=== PATIENT | female | born 1955 | race Caucasian/White ===

== ENCOUNTER 2021-01-31 21:59 | Inpatient (IN) | payer OTHER, MEDICARE ==
[2021-01-31] MEDS ORDERED: Ondansetron PF 4 MG/2 ML Vial ONE (22:24)
[2021-01-31] MEDS ORDERED: Morphine 4 MG/ML VIAL ONE (22:24)
[2021-01-31] MEDS ORDERED: Fentanyl 100 MCG/2 ML VIAL ONE (22:36)
[2021-01-31 22:37] LABS: #Eosinphils 0.1 10x3/uL (0.0-0.5); #Monocytes 0.6 10x3/uL (0.0-1.1); %Basophils 0.2 % (0.0-2.0); %Eosinophils 0.7 % (0.0-6.0); %Lymphocytes 25.6 % (18.0-47.0); %Monocytes 5.4 % (0.0-10.0); %Neutrophils 67.7 % (40.0-75.0); Hemoglobin 13.7 g/dL (12.0-15.5); Mean Corpuscular HGB CONC 32.5 g/dL (32.0-36.0); Mean Corpuscular Hemoglobin 28.7 pg (27.0-33.0); Mean Corpuscular Volume 88.5 fl (81.6-98.3); Mean Platelet Volume 10.4 fl (7.4-10.4); Platelet Count 234 10x3/uL (150-450); RBC Distribution Width 12.1 % (11.5-14.5); Red Blood Cell (RBC) Count 4.77 10x6/uL (3.90-5.03); White Blood Cell (WBC) Count 10.4 10x3/uL (3.5-10.5)
[2021-01-31 22:47] LABS: ALT (SGPT) 22 U/L (8-55); AST (SGOT) 16 U/L (5-34); Albumin 4.4 g/dL (3.4-4.8); Alkaline Phosphatase 101 U/L (40-110); Anion Gap 13 mmol/L (10-20); BUN (Urea Nitrogen) 15 mg/dL (9.8-20.1); Bilirubin, Total 0.6 mg/dL (0.2-1.2); Calc. Creatinine Clearance 0 mL/min (70-130); Calcium 9.1 mg/dL (7.8-10.44); Carbon Dioxide 28 mmol/L (23-31); Chloride 104 mmol/L (98-107); Globulin 2.3 g/dL (2.4-3.5); Glucose 135 mg/dL (80-115); Potassium 3.9 mmol/L (3.5-5.1); Protein, Total 6.7 g/dL (5.8-8.1); Sodium 141 mmol/L (136-145)
[2021-01-31 23:05] LABS: Lipase 6454 U/L (8-78)
[2021-02-01] MEDS ORDERED: Promethazine HCl 25 MG/ML VIAL ONE (00:13)
[2021-02-01 01:36] VITALS: BMI 31.6
[2021-02-01] MEDS ORDERED: Ondansetron PF 4 MG/2 ML Vial IVP PRN (03:17)
[2021-02-01] MEDS ORDERED: Fentanyl 100 MCG/2 ML VIAL SLOW IVP PRN (03:17)
[2021-02-01] MEDS ORDERED: NS 0.9% w/ 20 MEQ KCL 1,000 ML/1,000 ML BAG IV SCH (03:30)
[2021-02-01] MEDS ORDERED: Lactated Ringer's 1,000 ML IV SCH ×2 (03:30→04:30)
[2021-02-01] MEDS ORDERED: Sodium Chloride 0.9% (PF) 10 ML VIAL FS PRN (03:45)
[2021-02-01] MEDS: Fentanyl 100 MCG/2 ML VIAL SLOW IVP PRN ×2 (03:55→09:18)
[2021-02-01 05:29] LABS: #Eosinphils 0.1 10x3/uL (0.0-0.5); #Monocytes 0.5 10x3/uL (0.0-1.1); #Neutrophils 5.4 10x3/uL (1.5-8.4); %Basophils 0.1 % (0.0-2.0); %Eosinophils 0.6 % (0.0-6.0); %Lymphocytes 26.7 % (18.0-47.0); %Monocytes 5.7 % (0.0-10.0); %Neutrophils 66.8 % (40.0-75.0); Hemoglobin 11.9 g/dL (12.0-15.5); Mean Corpuscular HGB CONC 32.4 g/dL (32.0-36.0); Mean Corpuscular Volume 89.5 fl (81.6-98.3); Mean Platelet Volume 9.9 fl (7.4-10.4); Platelet Count 183 10x3/uL (150-450); RBC Distribution Width 12.2 % (11.5-14.5); White Blood Cell (WBC) Count 8.1 10x3/uL (3.5-10.5)
[2021-02-01 05:46] LABS: Anion Gap 11 mmol/L (10-20); BUN (Urea Nitrogen) 13 mg/dL (9.8-20.1); Calc. Creatinine Clearance 106 mL/min (70-130); Carbon Dioxide 27 mmol/L (23-31); Chloride 107 mmol/L (98-107); Glucose 105 mg/dL (80-115); Magnesium 1.8 mg/dL (1.6-2.6); Potassium 4.4 mmol/L (3.5-5.1); Sodium 141 mmol/L (136-145)
[2021-02-01 05:58] LABS: Lipase 1993 U/L (8-78)
[2021-02-01] MEDS: NS 0.9% w/ 20 MEQ KCL 1,000 ML/1,000 ML BAG IV SCH ×3 (06:13→18:46)
[2021-02-01] MEDS: Metoprolol Tartrate 5 MG/5 ML VIAL IVP SCH ×3 (06:15→22:21)
[2021-02-01] MEDS: Pantoprazole 40 MG VIAL IVP SCH (09:18)
[2021-02-01] MEDS: Enoxaparin Sodium 40 MG/0.4 ML SYRINGE SC SCH (09:18)
[2021-02-02] MEDS: Metoprolol Tartrate 5 MG/5 ML VIAL IVP SCH ×3 (06:02→23:03)
[2021-02-02] MEDS: NS 0.9% w/ 20 MEQ KCL 1,000 ML/1,000 ML BAG IV SCH ×3 (06:06→17:29)
[2021-02-02] MEDS: Pantoprazole 40 MG VIAL IVP SCH (09:23)
[2021-02-02] MEDS: Enoxaparin Sodium 40 MG/0.4 ML SYRINGE SC SCH (09:32)
[2021-02-02] MEDS ORDERED: Acetaminophen 325 MG TAB PO PRN (22:19)
[2021-02-02] MEDS ORDERED: Metoprolol Tartrate 25 MG TAB PO SCH (22:45)
[2021-02-03] MEDS: NS 0.9% w/ 20 MEQ KCL 1,000 ML/1,000 ML BAG IV SCH ×3 (01:08→11:24)
[2021-02-03] MEDS ORDERED: Metoprolol Tartrate 25 MG TAB PO SCH (09:00)
[2021-02-03] MEDS: Enoxaparin Sodium 40 MG/0.4 ML SYRINGE SC SCH (09:49)
[2021-02-03] MEDS: Pantoprazole 40 MG VIAL IVP SCH (09:49)
[2021-02-03 11:44] VITALS: BP 136/78; TEMP 97.8
== END 2021-02-03 13:45 | disposition home or self-care (01) | DRG 439 ==
LOC: CSHERS 21:59 → CSHTELE 02-01 01:07 → OBSVTOIN 02-01 03:17
PROVIDERS: ADMIT Family Medicine; ATTEND Emergency Medicine
DX: K85.00 Idiopathic acute pancreatitis without necrosis or infection (principal); K86.2 Cyst of pancreas; F17.210 Nicotine dependence, cigarettes, uncomplicated; E78.5 Hyperlipidemia, unspecified; E03.9 Hypothyroidism, unspecified; Z95.1 Presence of aortocoronary bypass graft; R73.9 Hyperglycemia, unspecified; Z88.5 Allergy status to narcotic agent
CPT/HCPCS: 71045; 80048; 80053; 83690; 83735; 84439; 84443; 84484; 85025; 96374; 96375; C9113; J1650; J2270; J2405; J2550; J3010; J3480; J7120

== ENCOUNTER 2021-08-05 05:11 | Emergency (ER) | payer OTHER, MEDICARE ==
[2021-08-05] MEDS ORDERED: Ondansetron PF 4 MG/2 ML Vial ONE (05:41)
[2021-08-05] MEDS ORDERED: Ketorolac Tromethamine 30 MG/ML VIAL ONE (05:41)
[2021-08-05 06:20] LABS: #Monocytes 0.2 10x3/uL (0.0-1.1); #Neutrophils 1.7 10x3/uL (1.5-8.4); %Lymphocytes 38.7 % (18.0-47.0); %Monocytes 6.6 % (0.0-10.0); %Neutrophils 54.1 % (40.0-75.0); Hemoglobin 12.8 g/dL (12.0-15.5); Mean Corpuscular HGB CONC 32.7 g/dL (32.0-36.0); Mean Corpuscular Hemoglobin 28.2 pg (27.0-33.0); Mean Corpuscular Volume 86.3 fl (81.6-98.3); Mean Platelet Volume 10.7 fl (7.4-10.4); Platelet Count 174 10x3/uL (150-450); Red Blood Cell (RBC) Count 4.54 10x6/uL (3.90-5.03); White Blood Cell (WBC) Count 3.2 10x3/uL (3.5-10.5)
[2021-08-05 06:39] LABS: ALT (SGPT) 37 U/L (8-55); AST (SGOT) 42 U/L (5-34); Albumin 3.8 g/dL (3.4-4.8); Alkaline Phosphatase 90 U/L (40-110); Anion Gap 13 mmol/L (10-20); BUN (Urea Nitrogen) 8 mg/dL (9.8-20.1); Bilirubin, Total 0.4 mg/dL (0.2-1.2); CRP (Inflammatory) 5.42 mg/dL (= or < 0.5); Calc. Creatinine Clearance 0 mL/min (70-130); Calcium 8.6 mg/dL (7.8-10.44); Carbon Dioxide 26 mmol/L (23-31); Chloride 104 mmol/L (98-107); Globulin 2.8 g/dL (2.4-3.5); Glucose 177 mg/dL (80-115); Potassium 3.5 mmol/L (3.5-5.1); Protein, Total 6.6 g/dL (5.8-8.1); Sodium 139 mmol/L (136-145)
== END 2021-08-05 07:50 | disposition home or self-care (01) ==
LOC: CSHERS 05:11
DX: U07.1 COVID-19 (principal); R11.2 Nausea with vomiting, unspecified; I10 Essential (primary) hypertension; E78.5 Hyperlipidemia, unspecified; E03.9 Hypothyroidism, unspecified; F17.210 Nicotine dependence, cigarettes, uncomplicated; Z79.899 Other long term (current) drug therapy
CPT/HCPCS: 80053; 83690; 84484; 85025; 86140; 93005; 96374; 96375; J1885; J2405

== ENCOUNTER 2021-10-03 13:15 | Inpatient (IN) | payer OTHER, MEDICARE ==
[2021-10-03] MEDS ORDERED: Ondansetron PF 4 MG/2 ML Vial ONE (14:01)
[2021-10-03] MEDS ORDERED: Fentanyl 100 MCG/2 ML VIAL ONE ×2 (14:01→16:13)
[2021-10-03 14:23] LABS: #Eosinphils 0.1 10x3/uL (0.0-0.5); #Monocytes 0.3 10x3/uL (0.0-1.1); #Neutrophils 3.7 10x3/uL (1.5-8.4); %Basophils 0.2 % (0.0-2.0); %Lymphocytes 31.2 % (18.0-47.0); %Monocytes 5.4 % (0.0-10.0); Hemoglobin 12.1 g/dL (12.0-15.5); Mean Corpuscular HGB CONC 32.2 g/dL (32.0-36.0); Mean Corpuscular Hemoglobin 28.3 pg (27.0-33.0); Mean Corpuscular Volume 87.9 fl (81.6-98.3); Mean Platelet Volume 10.1 fl (7.4-10.4); Platelet Count 337 10x3/uL (150-450); RBC Distribution Width 13.5 % (11.5-14.5); Red Blood Cell (RBC) Count 4.28 10x6/uL (3.90-5.03); White Blood Cell (WBC) Count 6.1 10x3/uL (3.5-10.5)
[2021-10-03 14:48] LABS: ALT (SGPT) 15 U/L (8-55); AST (SGOT) 13 U/L (5-34); Alkaline Phosphatase 99 U/L (40-110); Anion Gap 14 mmol/L (10-20); BUN (Urea Nitrogen) 10 mg/dL (9.8-20.1); Bilirubin, Total 0.2 mg/dL (0.2-1.2); Calc. Creatinine Clearance 0 mL/min (70-130); Carbon Dioxide 27 mmol/L (23-31); Chloride 103 mmol/L (98-107); Globulin 2.8 g/dL (2.4-3.5); Glucose 249 mg/dL (80-115); Lipase 184 U/L (8-78); Protein, Total 6.8 g/dL (5.8-8.1); Sodium 140 mmol/L (136-145)
[2021-10-03 16:30] LABS: Bilirubin Neg (Negative); Blood, Urine Negative (Negative); Clarity Clear (Clear); Glucose, Urine (Dipstick) Normal (Negative); Ketone, Urine Negative (Negative); Leukocyte Negative (Negative); Nitrite Negative (Negative); Protein, Urine (Dipstick) Negative (Neg-Trace); Specific Gravity, Urine 1.005 (1.002-1.036); Urobilinogen Normal mg/dL (Less than 2); pH, Urine 6.5 (5.0-9.0)
[2021-10-03] MEDS ORDERED: Ondansetron PF 4 MG/2 ML Vial IVP PRN ×2 (19:05→19:15)
[2021-10-03 19:15] LABS: SARS-CoV-2 NAA Rapid Test Not Detected (NotDetected)
[2021-10-03] MEDS ORDERED: Acetaminophen 325 MG TAB PO PRN (19:15)
[2021-10-03] MEDS ORDERED: Sodium Chloride 0.9% 1,000 ML IV SCH ×2 (19:15→21:15)
[2021-10-03] MEDS ORDERED: Ondansetron ODT 4 MG TAB SL PRN (19:15)
[2021-10-03] MEDS: Fentanyl 100 MCG/2 ML VIAL SLOW IVP PRN ×3 (19:30→22:37)
[2021-10-03 19:45] VITALS: BMI 31.6
[2021-10-03] MEDS ORDERED: Dextrose 50% Abboject 50 ML SYRINGE SLOW IVP PRN (21:23)
[2021-10-03] MEDS ORDERED: Dextrose 5% in Water 1,000 ML IV PRN (21:23)
[2021-10-03] MEDS ORDERED: HumaLOG 300 UNITS/3 ML VIAL SC PRN (21:23)
[2021-10-03] MEDS: Sodium Chloride 0.9% 1,000 ML IV SCH (22:42)
[2021-10-03] MEDS ORDERED: Fentanyl 100 MCG/2 ML VIAL SLOW IVP PRN (22:52)
[2021-10-03] MEDS ORDERED: HYDROmorphone 0.5 MG/0.5 ML SYRINGE SLOW IVP SCH ×2 (23:00→23:45)
[2021-10-03] MEDS: Ondansetron PF 4 MG/2 ML Vial IVP PRN (23:50)
[2021-10-04] MEDS: Sodium Chloride 0.9% 1,000 ML IV SCH ×6 (01:20→20:19)
[2021-10-04] MEDS: Ondansetron PF 4 MG/2 ML Vial IVP PRN ×2 (05:44→16:23)
[2021-10-04 06:28] LABS: #Eosinphils 0.1 10x3/uL (0.0-0.5); #Monocytes 0.4 10x3/uL (0.0-1.1); #Neutrophils 2.9 10x3/uL (1.5-8.4); %Basophils 0.2 % (0.0-2.0); %Eosinophils 2.3 % (0.0-6.0); %Lymphocytes 35.6 % (18.0-47.0); %Monocytes 6.7 % (0.0-10.0); Hemoglobin 10.9 g/dL (12.0-15.5); Mean Corpuscular HGB CONC 32.1 g/dL (32.0-36.0); Mean Corpuscular Hemoglobin 28.1 pg (27.0-33.0); Mean Corpuscular Volume 87.6 fl (81.6-98.3); Mean Platelet Volume 10.4 fl (7.4-10.4); Platelet Count 276 10x3/uL (150-450); Red Blood Cell (RBC) Count 3.88 10x6/uL (3.90-5.03); White Blood Cell (WBC) Count 5.2 10x3/uL (3.5-10.5)
[2021-10-04 06:38] LABS: PTT 26.2 sec (22.0-33.0); Prothrombin Time 10.9 sec (9.5-12.1)
[2021-10-04 06:50] LABS: Anion Gap 13 mmol/L (10-20); BUN (Urea Nitrogen) 5 mg/dL (9.8-20.1); Calc. Creatinine Clearance 108 mL/min (70-130); Carbon Dioxide 22 mmol/L (23-31); Cardiac Risk 7.4 (Less than 4.5); Chloride 111 mmol/L (98-107); Cholesterol 155 mg/dl (< 200 Desired); Glucose 130 mg/dL (80-115); HDL Cholesterol 21 mg/dL (>60 Neg Risk); LDL Cholesterol, Calculated 104 mg/dL; Lipase 94 U/L (8-78); Magnesium 1.5 mg/dL (1.6-2.6); Potassium 3.5 mmol/L (3.5-5.1); Sodium 142 mmol/L (136-145); Triglycerides 152 mg/dL (Less than 150)
[2021-10-04] MEDS ORDERED: hydrALAZINE 20 MG/ML VIAL SLOW IVP PRN (07:34)
[2021-10-04] MEDS ORDERED: Magnesium 2 GM/50 ML 2 GM in Premix Bag 1 BAG IVPB SCH (08:00)
[2021-10-04] MEDS ORDERED: HYDROmorphone 0.5 MG/0.5 ML SYRINGE SLOW IVP SCH (08:30)
[2021-10-04 09:22] LABS: Hemoglobin A1c 7.1 % (4.0-6.0)
[2021-10-04] MEDS: Enoxaparin Sodium 40 MG/0.4 ML SYRINGE SC SCH (09:38)
[2021-10-04] MEDS ORDERED: HYDROmorphone 0.5 MG/0.5 ML SYRINGE SLOW IVP PRN (12:00)
[2021-10-04] MEDS ORDERED: fentaNYL 50 mcg/hour Patch TD SCH (14:00)
[2021-10-04] MEDS ORDERED: diphenhydrAMINE 50 MG/ML VIAL IVP PRN (17:59)
[2021-10-04] MEDS ORDERED: diphenhydrAMINE 50 MG/ML VIAL IM PRN (17:59)
[2021-10-04] MEDS ORDERED: Zolpidem Tartrate 5 MG TAB PO PRN (17:59)
[2021-10-04] MEDS ORDERED: Naloxone HCl 0.4 mg/ml Vial IV PRN (17:59)
[2021-10-04] MEDS ORDERED: Promethazine HCl 25 MG/ML VIAL IM PRN (17:59)
[2021-10-04] MEDS ORDERED: diphenhydrAMINE 25 MG CAP PO PRN (17:59)
[2021-10-04] MEDS ORDERED: HYDROmorphone 10 mg/100 ml CADD IVPB PRN (17:59)
[2021-10-04] MEDS ORDERED: Ondansetron PF 4 MG/2 ML Vial IVP PRN (17:59)
[2021-10-04] MEDS ORDERED: Communication Order-Pharmacy FS SCH (18:00)
[2021-10-04] MEDS ORDERED: HYDROmorphone HCL/PF 10 MG in Sodium Chloride 0.9% 49 ML FS PRN (18:52)
[2021-10-04] MEDS: Dextrose 5 %-0.45 % NaCl 1,000 ML IV SCH (20:00)
[2021-10-05] MEDS: Sodium Chloride 0.9% 1,000 ML IV SCH ×2 (04:37→06:09)
[2021-10-05 04:38] LABS: Anion Gap 14 mmol/L (10-20); BUN (Urea Nitrogen) 4 mg/dL (9.8-20.1); Calc. Creatinine Clearance 108 mL/min (70-130); Calcium 8.1 mg/dL (7.8-10.44); Carbon Dioxide 22 mmol/L (23-31); Chloride 109 mmol/L (98-107); Glucose 121 mg/dL (80-115); Magnesium 2.1 mg/dL (1.6-2.6); Potassium 3.5 mmol/L (3.5-5.1); Sodium 141 mmol/L (136-145)
[2021-10-05] MEDS: Dextrose 5 %-0.45 % NaCl 1,000 ML IV SCH ×2 (06:09→18:29)
[2021-10-05] MEDS ORDERED: Potassium Chloride 20 MEQ TAB PO SCH (08:00)
[2021-10-05] MEDS ORDERED: Potassium Chloride 40 MEQ in Premix Bag 1 BAG IVPB SCH (08:00)
[2021-10-05] MEDS: Enoxaparin Sodium 40 MG/0.4 ML SYRINGE SC SCH (08:57)
[2021-10-05] MEDS ORDERED: Labetalol HCl 100 MG/20 ML VIAL SLOW IVP PRN (12:22)
[2021-10-05] MEDS ORDERED: HYDROcodone/Acetaminophen 5/325 mg Tablet PO PRN (15:24)
[2021-10-06 04:44] LABS: Anion Gap 11 mmol/L (10-20); BUN (Urea Nitrogen) 4 mg/dL (9.8-20.1); Calc. Creatinine Clearance 98 mL/min (70-130); Calcium 8.6 mg/dL (7.8-10.44); Carbon Dioxide 26 mmol/L (23-31); Chloride 110 mmol/L (98-107); Glucose 117 mg/dL (80-115); Magnesium 1.9 mg/dL (1.6-2.6); Sodium 143 mmol/L (136-145)
[2021-10-06] MEDS ORDERED: Levothyroxine Sodium 112 MCG TAB PO SCH (06:00)
[2021-10-06] MEDS: Enoxaparin Sodium 40 MG/0.4 ML SYRINGE SC SCH (09:46)
[2021-10-06 11:15] VITALS: BP 158/84; TEMP 97.9
== END 2021-10-06 09:30 | disposition home or self-care (01) | DRG 439 ==
LOC: CSHERS 13:15 → CSHTELE 18:15
PROVIDERS: ADMIT Family Medicine; ATTEND Internal Medicine
DX: K85.00 Idiopathic acute pancreatitis without necrosis or infection (principal); K86.3 Pseudocyst of pancreas; Z20.822 Contact with and (suspected) exposure to COVID-19; I10 Essential (primary) hypertension; E03.9 Hypothyroidism, unspecified; F17.210 Nicotine dependence, cigarettes, uncomplicated; E11.9 Type 2 diabetes mellitus without complications; Z96.653 Presence of artificial knee joint, bilateral; E78.5 Hyperlipidemia, unspecified; Z98.51 Tubal ligation status; Z79.899 Other long term (current) drug therapy; Z79.890 Hormone replacement therapy; Z88.5 Allergy status to narcotic agent; Z90.710 Acquired absence of both cervix and uterus
CPT/HCPCS: 36415; 36416; 74183; 80048; 80053; 80061; 81003; 83036; 83690; 83735; 85025; 85610; 85730; 93005; 96374; 96375; 96376; J0360; J1170; J1650; J2405; J3010; J3475; J3490; J7042; J7050; U0002

== ENCOUNTER 2021-12-08 01:02 | Emergency (ER) | payer OTHER, MEDICARE ==
[2021-12-08] MEDS ORDERED: Ondansetron PF 4 MG/2 ML Vial ONE (01:21)
[2021-12-08] MEDS ORDERED: Promethazine HCl 25 MG/ML VIAL ONE (01:24)
[2021-12-08] MEDS ORDERED: Ketorolac Tromethamine 30 MG/ML VIAL ONE (01:31)
[2021-12-08 01:56] LABS: Platelet Count 243 10x3/uL (150-450)
[2021-12-08 01:57] LABS: #Eosinphils 0.1 10x3/uL (0.0-0.5); #Monocytes 0.2 10x3/uL (0.0-1.1); #Neutrophils 10.3 10x3/uL (1.5-8.4); %Basophils 0.2 % (0.0-2.0); %Eosinophils 0.3 % (0.0-6.0); %Monocytes 1.3 % (0.0-10.0); Hemoglobin 13.8 g/dL (12.0-15.5); Mean Corpuscular Hemoglobin 28.5 pg (27.0-33.0); Mean Corpuscular Volume 94.8 fl (81.6-98.3); Mean Platelet Volume 10.4 fl (7.4-10.4); RBC Distribution Width 13.8 % (11.5-14.5); Red Blood Cell (RBC) Count 4.85 10x6/uL (3.90-5.03); White Blood Cell (WBC) Count 15.4 10x3/uL (3.5-10.5)
[2021-12-08 02:07] LABS: ALT (SGPT) 20 U/L (8-55); AST (SGOT) 17 U/L (5-34); Albumin 4.4 g/dL (3.4-4.8); Alkaline Phosphatase 85 U/L (40-110); Anion Gap 20 mmol/L (10-20); BUN (Urea Nitrogen) 17 mg/dL (9.8-20.1); Bilirubin, Total 0.7 mg/dL (0.2-1.2); Calc. Creatinine Clearance 0 mL/min (70-130); Carbon Dioxide 18 mmol/L (23-31); Chloride 106 mmol/L (98-107); Globulin 2.7 g/dL (2.4-3.5); Glucose 160 mg/dL (80-115); Lipase 88 U/L (8-78); Potassium 4.3 mmol/L (3.5-5.1); Protein, Total 7.1 g/dL (5.8-8.1); Sodium 140 mmol/L (136-145)
== END 2021-12-08 05:26 | disposition home or self-care (01) ==
LOC: CSHERS 01:02
DX: R10.11 Right upper quadrant pain (principal); I10 Essential (primary) hypertension; E78.5 Hyperlipidemia, unspecified; Z79.899 Other long term (current) drug therapy
CPT/HCPCS: 71045; 76705; 80053; 83690; 84484; 85025; 93005; 96374; 96375; J1885; J2405; J2550

== ENCOUNTER 2021-12-13 17:54 | Inpatient (IN) | payer MEDICARE, OTHER ==
[2021-12-13] MEDS ORDERED: Ondansetron PF 4 MG/2 ML Vial ONE (18:50)
[2021-12-13] MEDS ORDERED: Ketorolac Tromethamine 30 MG/ML VIAL ONE (18:50)
[2021-12-13] MEDS ORDERED: Promethazine HCl 25 MG/ML VIAL ONE (18:50)
[2021-12-13 18:53] LABS: #Basophils 0.1 10x3/uL (0.0-0.2); #Monocytes 1.4 10x3/uL (0.0-1.1); #Neutrophils 10.9 10x3/uL (1.5-8.4); %Basophils 0.5 % (0.0-2.0); %Eosinophils 0.1 % (0.0-6.0); %Lymphocytes 15.1 % (18.0-47.0); %Monocytes 9.2 % (0.0-10.0); %Neutrophils 70.2 % (40.0-75.0); Hemoglobin 11.1 g/dL (12.0-15.5); Mean Corpuscular HGB CONC 31.8 g/dL (32.0-36.0); Mean Corpuscular Hemoglobin 27.7 pg (27.0-33.0); Mean Platelet Volume 9.4 fl (7.4-10.4); Platelet Count 343 10x3/uL (150-450); RBC Distribution Width 14.3 % (11.5-14.5); Red Blood Cell (RBC) Count 4.01 10x6/uL (3.90-5.03); White Blood Cell (WBC) Count 15.5 10x3/uL (3.5-10.5)
[2021-12-13 19:02] LABS: ALT (SGPT) 27 U/L (8-55); AST (SGOT) 23 U/L (5-34); Albumin 3.4 g/dL (3.4-4.8); Alkaline Phosphatase 102 U/L (40-110); Anion Gap 15 mmol/L (10-20); BUN (Urea Nitrogen) 12 mg/dL (9.8-20.1); Bilirubin, Total 0.5 mg/dL (0.2-1.2); Calc. Creatinine Clearance 0 mL/min (70-130); Calcium 8.3 mg/dL (7.8-10.44); Carbon Dioxide 23 mmol/L (23-31); Chloride 101 mmol/L (98-107); Globulin 2.6 g/dL (2.4-3.5); Glucose 144 mg/dL (80-115); Lipase 132 U/L (8-78); Potassium 3.3 mmol/L (3.5-5.1); Sodium 136 mmol/L (136-145)
[2021-12-13 20:07] LABS: Bilirubin 1+ (Negative); Blood, Urine 50 (Negative); Clarity Clear (Clear); Glucose, Urine (Dipstick) Normal (Negative); Ketone, Urine 50 mg/dL (Negative); Leukocyte 25 (Negative); Nitrite Negative (Negative); Protein, Urine (Dipstick) 100 mg/dl (Neg-Trace); Specific Gravity, Urine 1.015 (1.002-1.036)
[2021-12-13 20:15] LABS: Bacteria/HPF None Seen HPF (None Seen); RBC/HPF 0-3 HPF (0-3); Squamous Epithelial 0-3 HPF (0-3); WBC/HPF 0-3 HPF (0-3)
[2021-12-13 21:19] LABS: SARS-CoV-2 NAA Rapid Test Not Detected (NotDetected)
[2021-12-13] MEDS ORDERED: Zolpidem Tartrate 5 MG TAB PO PRN (21:25)
[2021-12-13] MEDS ORDERED: Guaifenesin DM 100-10/5 ML UDCUP PO PRN (21:25)
[2021-12-13] MEDS ORDERED: Senokot S 8.6-50 MG TAB PO PRN (21:25)
[2021-12-13] MEDS ORDERED: Calcium Carbonate 500 MG ChewTAB PO PRN (21:25)
[2021-12-13] MEDS ORDERED: Morphine 4 MG/ML VIAL SLOW IVP PRN (21:30)
[2021-12-13] MEDS ORDERED: Piperacillin/Tazobactam 4.5 GM VIAL ONE ×2 (21:34→23:12)
[2021-12-13] MEDS ORDERED: Potassium Chloride 20 MEQ in Premix Bag 1 BAG IVPB SCH (21:45)
[2021-12-14] MEDS: Lactated Ringer's 1,000 ML IV SCH ×3 (00:03→19:52)
[2021-12-14 01:17] VITALS: BMI 30.4
[2021-12-14 01:42] LABS: Legionella Urinary Ag Negative (Negative); Strep pneumo Urine Ag NEGATIVE (NEGATIVE)
[2021-12-14 04:26] LABS: ALT (SGPT) 20 U/L (8-55); AST (SGOT) 19 U/L (5-34); Albumin 2.8 g/dL (3.4-4.8); Alkaline Phosphatase 82 U/L (40-110); Anion Gap 15 mmol/L (10-20); BUN (Urea Nitrogen) 11 mg/dL (9.8-20.1); Bilirubin, Total 0.5 mg/dL (0.2-1.2); Calc. Creatinine Clearance 104 mL/min (70-130); Calcium 8.1 mg/dL (7.8-10.44); Carbon Dioxide 20 mmol/L (23-31); Chloride 107 mmol/L (98-107); Globulin 2.9 g/dL (2.4-3.5); Glucose 101 mg/dL (80-115); Lipase 140 U/L (8-78); Magnesium 1.4 mg/dL (1.6-2.6); Potassium 3.7 mmol/L (3.5-5.1); Protein, Total 5.7 g/dL (5.8-8.1); Sodium 138 mmol/L (136-145)
[2021-12-14] MEDS ORDERED: Magnesium 2 GM/50 ML 2 GM in Premix Bag 1 BAG IVPB SCH (06:00)
[2021-12-14] MEDS: Levothyroxine Sodium 112 MCG TAB PO SCH (06:04)
[2021-12-14] MEDS: Piperacillin/Tazobactam 3.375 GM in Sodium Chloride 0.9% 100 ML IVPB SCH ×3 (06:15→22:01)
[2021-12-14 06:20] LABS: Hemoglobin 10.5 g/dL (12.0-15.5); MDiff Complete? YES; Mean Corpuscular HGB CONC 31.8 g/dL (32.0-36.0); Mean Corpuscular Hemoglobin 28.5 pg (27.0-33.0); Mean Corpuscular Volume 89.4 fl (81.6-98.3); Platelet Count 315 10x3/uL (150-450); RBC Distribution Width 14.6 % (11.5-14.5); Red Blood Cell (RBC) Count 3.69 10x6/uL (3.90-5.03); White Blood Cell (WBC) Count 11.7 10x3/uL (3.5-10.5)
[2021-12-14 06:23] LABS: Band 8 % (5-11); Eosinophils 3 % (0-10); Lymphocytes 20 % (21-51); Monocytes 8 % (0-10); Neutrophil 60 % (42-75); Reactive Lymphocytes 1 % (0-10)
[2021-12-14 06:24] LABS: Platelet Clumps SLIGHT; Platelet Morphology Comment Appears Adequate; RBC Morphology Normal
[2021-12-14] MEDS: Enoxaparin Sodium 40 MG/0.4 ML SYRINGE SC SCH (08:49)
[2021-12-14] MEDS: Famotidine/PF 20 mg/2ml Vial SLOW IVP SCH ×2 (08:49→20:03)
[2021-12-14] MEDS ORDERED: Electrolyte Replacement Protocol 1 EACH FS SCH (12:30)
[2021-12-14] MEDS: Promethazine HCl 12.5 MG in Sodium Chloride 0.9% 50 ML IVPB PRN (18:23)
[2021-12-14] MEDS: Ketorolac Tromethamine 30 MG/ML VIAL IVP PRN (18:24)
[2021-12-14] MEDS: Atorvastatin Calcium 10 MG TAB PO SCH (20:03)
[2021-12-15] MEDS: Ketorolac Tromethamine 30 MG/ML VIAL IVP PRN ×2 (02:27→19:42)
[2021-12-15] MEDS: Promethazine HCl 12.5 MG in Sodium Chloride 0.9% 50 ML IVPB PRN ×2 (02:30→21:58)
[2021-12-15] MEDS: Lactated Ringer's 1,000 ML IV SCH ×2 (05:47→12:57)
[2021-12-15] MEDS: Piperacillin/Tazobactam 3.375 GM in Sodium Chloride 0.9% 100 ML IVPB SCH ×3 (05:49→22:58)
[2021-12-15] MEDS: Levothyroxine Sodium 112 MCG TAB PO SCH (05:53)
[2021-12-15 06:07] LABS: ALT (SGPT) 26 U/L (8-55); AST (SGOT) 27 U/L (5-34); Albumin 2.7 g/dL (3.4-4.8); Alkaline Phosphatase 87 U/L (40-110); Anion Gap 13 mmol/L (10-20); BUN (Urea Nitrogen) 8 mg/dL (9.8-20.1); Bilirubin, Total 0.5 mg/dL (0.2-1.2); Calc. Creatinine Clearance 102 mL/min (70-130); Calcium 8.2 mg/dL (7.8-10.44); Carbon Dioxide 23 mmol/L (23-31); Chloride 106 mmol/L (98-107); Globulin 3.1 g/dL (2.4-3.5); Glucose 129 mg/dL (80-115); Potassium 3.4 mmol/L (3.5-5.1); Protein, Total 5.8 g/dL (5.8-8.1); Sodium 139 mmol/L (136-145)
[2021-12-15 06:55] LABS: Hemoglobin 9.8 g/dL (12.0-15.5); Mean Corpuscular HGB CONC 32.1 g/dL (32.0-36.0); Mean Corpuscular Volume 87.1 fl (81.6-98.3); Mean Platelet Volume 10.1 fl (7.4-10.4); Platelet Count 357 10x3/uL (150-450); RBC Distribution Width 14.7 % (11.5-14.5); White Blood Cell (WBC) Count 11.2 10x3/uL (3.5-10.5)
[2021-12-15 07:16] LABS: MDiff Complete? YES
[2021-12-15] MEDS ORDERED: Potassium Chloride 20 MEQ TAB PO SCH (08:00)
[2021-12-15 08:08] LABS: Band 5 % (5-11); Lymphocytes 20 % (21-51); Monocytes 6 % (0-10); Neutrophil 66 % (42-75); Reactive Lymphocytes 3 % (0-10)
[2021-12-15 08:09] LABS: Diff Comment (RBC Morph SCRN) NORMAL; Platelet Morphology Comment Appears Adequate
[2021-12-15 08:10] LABS: RBC Morphology NORMAL
[2021-12-15] MEDS: Famotidine/PF 20 mg/2ml Vial SLOW IVP SCH ×2 (08:44→21:59)
[2021-12-15] MEDS: Enoxaparin Sodium 40 MG/0.4 ML SYRINGE SC SCH (08:45)
[2021-12-15] MEDS: Pancrelipase DR 12,000 1 CAP PO SCH ×3 (08:46→17:28)
[2021-12-15] MEDS: Acetaminophen 325 MG TAB PO PRN ×2 (16:04→22:57)
[2021-12-15] MEDS ORDERED: Piperacillin/Tazobactam 3.375 GM VIAL ONE (21:52)
[2021-12-15] MEDS: Atorvastatin Calcium 10 MG TAB PO SCH (21:58)
[2021-12-16] MEDS: Lactated Ringer's 1,000 ML IV SCH ×2 (03:22→06:02)
[2021-12-16 04:19] LABS: #Eosinphils 0.1 10x3/uL (0.0-0.5); #Monocytes 0.8 10x3/uL (0.0-1.1); #Neutrophils 10.5 10x3/uL (1.5-8.4); %Basophils 0.2 % (0.0-2.0); %Eosinophils 0.4 % (0.0-6.0); %Lymphocytes 13.4 % (18.0-47.0); %Monocytes 5.8 % (0.0-10.0); %Neutrophils 78.3 % (40.0-75.0); Hemoglobin 9.7 g/dL (12.0-15.5); Mean Corpuscular HGB CONC 32.1 g/dL (32.0-36.0); Mean Corpuscular Hemoglobin 28.3 pg (27.0-33.0); Mean Platelet Volume 9.7 fl (7.4-10.4); Platelet Count 393 10x3/uL (150-450); RBC Distribution Width 14.6 % (11.5-14.5); Red Blood Cell (RBC) Count 3.43 10x6/uL (3.90-5.03); White Blood Cell (WBC) Count 13.4 10x3/uL (3.5-10.5)
[2021-12-16 04:40] LABS: Anion Gap 12 mmol/L (10-20); BUN (Urea Nitrogen) 6 mg/dL (9.8-20.1); Calc. Creatinine Clearance 107 mL/min (70-130); Carbon Dioxide 25 mmol/L (23-31); Chloride 108 mmol/L (98-107); Potassium 3.4 mmol/L (3.5-5.1); Sodium 142 mmol/L (136-145)
[2021-12-16 04:41] LABS: ALT (SGPT) 34 U/L (8-55); AST (SGOT) 28 U/L (5-34); Albumin 2.8 g/dL (3.4-4.8); Alkaline Phosphatase 99 U/L (40-110); Bilirubin, Total 0.6 mg/dL (0.2-1.2); Calcium 8.2 mg/dL (7.8-10.44); Glucose 120 mg/dL (80-115); Lipase 199 U/L (8-78); Protein, Total 5.8 g/dL (5.8-8.1)
[2021-12-16] MEDS ORDERED: Potassium Chloride 20 MEQ TAB PO SCH (05:15)
[2021-12-16] MEDS: Piperacillin/Tazobactam 3.375 GM in Sodium Chloride 0.9% 100 ML IVPB SCH ×3 (06:01→21:33)
[2021-12-16] MEDS: Levothyroxine Sodium 112 MCG TAB PO SCH (06:02)
[2021-12-16] MEDS: Enoxaparin Sodium 40 MG/0.4 ML SYRINGE SC SCH (09:10)
[2021-12-16] MEDS: Famotidine/PF 20 mg/2ml Vial SLOW IVP SCH ×2 (09:11→21:33)
[2021-12-16] MEDS: Ondansetron PF 4 MG/2 ML Vial IVP PRN (10:16)
[2021-12-16] MEDS: Ketorolac Tromethamine 30 MG/ML VIAL IVP PRN (10:16)
[2021-12-16] MEDS: Pancrelipase DR 12,000 1 CAP PO SCH ×3 (10:33→17:15)
[2021-12-16] MEDS: Atorvastatin Calcium 10 MG TAB PO SCH (21:33)
[2021-12-17] MEDS: Ketorolac Tromethamine 30 MG/ML VIAL IVP PRN (01:43)
[2021-12-17] MEDS: Piperacillin/Tazobactam 3.375 GM in Sodium Chloride 0.9% 100 ML IVPB SCH ×2 (05:39→17:29)
[2021-12-17] MEDS: Levothyroxine Sodium 112 MCG TAB PO SCH (05:40)
[2021-12-17 05:50] LABS: #Eosinphils 0.1 10x3/uL (0.0-0.5); #Monocytes 0.8 10x3/uL (0.0-1.1); #Neutrophils 12.9 10x3/uL (1.5-8.4); %Basophils 0.3 % (0.0-2.0); %Eosinophils 0.3 % (0.0-6.0); %Lymphocytes 10.9 % (18.0-47.0); %Monocytes 5.3 % (0.0-10.0); %Neutrophils 81.7 % (40.0-75.0); Hemoglobin 9.8 g/dL (12.0-15.5); Mean Corpuscular HGB CONC 31.8 g/dL (32.0-36.0); Mean Platelet Volume 10.3 fl (7.4-10.4); Platelet Count 409 10x3/uL (150-450); RBC Distribution Width 14.6 % (11.5-14.5); White Blood Cell (WBC) Count 15.8 10x3/uL (3.5-10.5)
[2021-12-17 05:58] LABS: ALT (SGPT) 31 U/L (8-55); AST (SGOT) 26 U/L (5-34); Albumin 2.9 g/dL (3.4-4.8); Alkaline Phosphatase 106 U/L (40-110); Anion Gap 13 mmol/L (10-20); BUN (Urea Nitrogen) 6 mg/dL (9.8-20.1); Bilirubin, Total 0.5 mg/dL (0.2-1.2); Calc. Creatinine Clearance 98 mL/min (70-130); Calcium 8.4 mg/dL (7.8-10.44); Carbon Dioxide 25 mmol/L (23-31); Chloride 104 mmol/L (98-107); Globulin 3.1 g/dL (2.4-3.5); Glucose 163 mg/dL (80-115); Magnesium 1.6 mg/dL (1.6-2.6); Phosphorus 3.5 mg/dL (2.3-4.7); Potassium 3.4 mmol/L (3.5-5.1); Sodium 139 mmol/L (136-145)
[2021-12-17] MEDS ORDERED: Magnesium 2 GM/50 ML 2 GM in Premix Bag 1 BAG IVPB SCH (08:00)
[2021-12-17] MEDS ORDERED: Famotidine/PF 20 mg/2ml Vial ONE (08:33)
[2021-12-17] MEDS: Potassium Chloride 20 MEQ TAB PO SCH ×2 (08:54→17:30)
[2021-12-17] MEDS: Enoxaparin Sodium 40 MG/0.4 ML SYRINGE SC SCH (08:54)
[2021-12-17] MEDS: Pancrelipase DR 12,000 1 CAP PO SCH ×3 (12:01→17:09)
[2021-12-17] MEDS: Famotidine/PF 20 mg/2ml Vial SLOW IVP SCH (12:49)
[2021-12-17 13:14] LABS: Hemoglobin A1c 7.3 % (4.0-6.0)
[2021-12-17] MEDS: Acetaminophen 325 MG TAB PO PRN (14:40)
[2021-12-17] MEDS: Ondansetron PF 4 MG/2 ML Vial IVP PRN (17:28)
[2021-12-17] MEDS: Magnesium Oxide 400 MG TAB PO SCH (20:39)
[2021-12-17] MEDS: Famotidine 20 MG TAB PO SCH (20:40)
[2021-12-17] MEDS: Atorvastatin Calcium 10 MG TAB PO SCH (20:40)
[2021-12-18] MEDS: Piperacillin/Tazobactam 3.375 GM in Sodium Chloride 0.9% 100 ML IVPB SCH ×3 (00:28→18:01)
[2021-12-18 04:38] LABS: ALT (SGPT) 27 U/L (8-55); AST (SGOT) 20 U/L (5-34); Albumin 2.8 g/dL (3.4-4.8); Alkaline Phosphatase 81 U/L (40-110); Anion Gap 13 mmol/L (10-20); BUN (Urea Nitrogen) 7 mg/dL (9.8-20.1); Bilirubin, Total 0.3 mg/dL (0.2-1.2); Calc. Creatinine Clearance 98 mL/min (70-130); Calcium 8.2 mg/dL (7.8-10.44); Carbon Dioxide 26 mmol/L (23-31); Chloride 101 mmol/L (98-107); Glucose 183 mg/dL (80-115); Lipase 327 U/L (8-78); Magnesium 1.6 mg/dL (1.6-2.6); Phosphorus 3.3 mg/dL (2.3-4.7); Potassium 3.8 mmol/L (3.5-5.1); Protein, Total 5.8 g/dL (5.8-8.1); Sodium 136 mmol/L (136-145)
[2021-12-18] MEDS ORDERED: Magnesium 2 GM/50 ML 2 GM in Premix Bag 1 BAG IVPB SCH ×2 (04:45→09:45)
[2021-12-18 04:46] LABS: #Neutrophils 14.8 10x3/uL (1.5-8.4); %Basophils 0.2 % (0.0-2.0); %Eosinophils 0.2 % (0.0-6.0); %Lymphocytes 11.4 % (18.0-47.0); %Monocytes 5.6 % (0.0-10.0); %Neutrophils 81.3 % (40.0-75.0); Hemoglobin 9.9 g/dL (12.0-15.5); Mean Corpuscular HGB CONC 31.7 g/dL (32.0-36.0); Mean Corpuscular Hemoglobin 27.8 pg (27.0-33.0); Mean Corpuscular Volume 87.6 fl (81.6-98.3); Mean Platelet Volume 9.6 fl (7.4-10.4); Platelet Count 437 10x3/uL (150-450); RBC Distribution Width 14.7 % (11.5-14.5); Red Blood Cell (RBC) Count 3.56 10x6/uL (3.90-5.03); White Blood Cell (WBC) Count 18.1 10x3/uL (3.5-10.5)
[2021-12-18] MEDS: Levothyroxine Sodium 112 MCG TAB PO SCH (05:51)
[2021-12-18] MEDS: Magnesium 2 GM/50 ML 2 GM in Premix Bag 1 BAG IVPB SCH ×2 (09:14→09:42)
[2021-12-18] MEDS: Lactated Ringer's 1,000 ML IV SCH ×2 (09:14→18:02)
[2021-12-18] MEDS: Enoxaparin Sodium 40 MG/0.4 ML SYRINGE SC SCH (09:14)
[2021-12-18] MEDS: Magnesium Oxide 400 MG TAB PO SCH ×2 (09:15→20:29)
[2021-12-18] MEDS: Potassium Chloride 20 MEQ TAB PO SCH (09:15)
[2021-12-18] MEDS: Famotidine 20 MG TAB PO SCH ×2 (09:15→20:29)
[2021-12-18] MEDS: Ondansetron PF 4 MG/2 ML Vial IVP PRN ×2 (09:15→18:00)
[2021-12-18] MEDS: Morphine 4 MG/ML VIAL SLOW IVP PRN ×2 (09:16→18:00)
[2021-12-18] MEDS: Pancrelipase DR 12,000 1 CAP PO SCH ×3 (09:18→18:01)
[2021-12-18] MEDS: Acetaminophen 325 MG TAB PO PRN (14:21)
[2021-12-18] MEDS: Atorvastatin Calcium 10 MG TAB PO SCH (20:29)
[2021-12-18 23:03] VITALS: BP 116/50; TEMP 97.6
== END 2021-12-18 22:40 | disposition short-term general hospital (02) | DRG 871 ==
LOC: CSHERS 17:54 → CSHTELE 23:43
PROVIDERS: ADMIT Student in an Organized Health Care Education/Training Program; ATTEND Family Medicine
DX: A41.9 Sepsis, unspecified organism (principal); K85.00 Idiopathic acute pancreatitis without necrosis or infection; J18.9 Pneumonia, unspecified organism; K86.3 Pseudocyst of pancreas; J98.11 Atelectasis; J90 Pleural effusion, not elsewhere classified; I31.3 Pericardial effusion (noninflammatory); R71.0 Precipitous drop in hematocrit; K52.1 Toxic gastroenteritis and colitis; E78.5 Hyperlipidemia, unspecified; I10 Essential (primary) hypertension; K80.20 Calculus of gallbladder without cholecystitis without obstruction; R73.9 Hyperglycemia, unspecified; E03.9 Hypothyroidism, unspecified; K57.30 Diverticulosis of large intestine without perforation or abscess without bleeding; Z20.822 Contact with and (suspected) exposure to COVID-19; N20.0 Calculus of kidney; E87.6 Hypokalemia; Z96.653 Presence of artificial knee joint, bilateral; T47.5X5A Adverse effect of digestants, initial encounter; I49.9 Cardiac arrhythmia, unspecified; Z79.899 Other long term (current) drug therapy; Z98.51 Tubal ligation status; Z87.891 Personal history of nicotine dependence; Z88.5 Allergy status to narcotic agent
CPT/HCPCS: 0240U; 36415; 71045; 74176; 80053; 81003; 81015; 83036; 83690; 83735; 84100; 84132; 84436; 84443; 84484; 85025; 86301; 87040; 87324; 87449; 87899; 93005; 96365; 96375; J1650; J1885; J2270; J2405; J2543; J2550; J3475; J3480; J3490; J7120; S0028

== ENCOUNTER 2022-01-01 13:12 | Outpatient (CLI) | payer MEDICARE, BC ==
[2022-01-02 00:28] LABS: SARS-CoV-2 PCR by NAA DETECTED (NotDetected)
== END 2022-01-01 13:13 | disposition home or self-care (01) ==
LOC: CSHLAB 13:12
PROVIDERS: ATTEND Surgery
DX: U07.1 COVID-19 (principal); K80.20 Calculus of gallbladder without cholecystitis without obstruction
CPT/HCPCS: U0003; U0005

== ENCOUNTER 2022-01-02 16:20 | Outpatient (CLI) | payer MEDICARE, BC ==
[2022-01-03 14:25] LABS: SARS-CoV-2 PCR by NAA DETECTED (NotDetected)
== END 2022-01-02 16:21 | disposition home or self-care (01) ==
LOC: CSHLAB 16:20
PROVIDERS: ATTEND Surgery
DX: U07.1 COVID-19 (principal)
CPT/HCPCS: U0003; U0005

== ENCOUNTER 2022-01-11 07:36 | Day surgery (SDC) | payer BC, MEDICARE ==
[2021-12-26 15:11] VITALS: BMI 28.6
[2022-01-11] MEDS ORDERED: Lidocaine 1% MPF 2 ML VIAL ONE (07:48)
[2022-01-11] MEDS ORDERED: Midazolam HCl 2 mg/2 ml Vial ONE ×2 (08:38→08:43)
[2022-01-11] MEDS ORDERED: EPINEPHrine 1 MG/ML AMP ONE (08:41)
[2022-01-11] MEDS ORDERED: Bupivacaine PF 0.5% 30 ML VIAL ONE (08:41)
[2022-01-11] MEDS ORDERED: Fentanyl 250 MCG/5 ML VIAL ONE (08:43)
[2022-01-11] MEDS ORDERED: PROPOFOL 20 ML ONE (08:43)
[2022-01-11] MEDS ORDERED: Rocuronium Bromide 10 MG/ML (10ML VIAL) ONE (08:44)
[2022-01-11] MEDS ORDERED: Lidocaine 1% PF 5 ML VIAL ONE (08:44)
[2022-01-11] MEDS ORDERED: Ondansetron PF 4 MG/2 ML Vial ONE (08:44)
[2022-01-11] MEDS ORDERED: Ketorolac Tromethamine 30 MG/ML VIAL ONE (08:44)
[2022-01-11] MEDS ORDERED: Glycopyrrolate 0.2 MG/ML 5 ML SYRINGE ONE (08:44)
[2022-01-11] MEDS ORDERED: ceFAZolin 2 GM/Dextrose 50 ML IVPB ONE (08:52)
[2022-01-11] MEDS ORDERED: Acetaminophen 325 MG TAB PO PRN (08:55)
[2022-01-11] MEDS ORDERED: HYDROcodone/Acetaminophen 5/325 mg Tablet PO PRN (08:55)
== END 2022-01-11 13:05 | disposition home or self-care (01) ==
LOC: CSHSDC 07:36
PROVIDERS: ATTEND Surgery
PROC: 0FT44ZZ Resection of Gallbladder, Percutaneous Endoscopic Approach (ICD-10-PCS; principal; 2022-01-11)
DX: K85.10 Biliary acute pancreatitis without necrosis or infection (principal); K81.1 Chronic cholecystitis; K86.3 Pseudocyst of pancreas; Z79.899 Other long term (current) drug therapy; E03.9 Hypothyroidism, unspecified; E78.5 Hyperlipidemia, unspecified; F17.210 Nicotine dependence, cigarettes, uncomplicated
CPT/HCPCS: 47562; C1776; 88304; J0171; J0690; J1885; J2250; J2405; J2704; J3010; S0020

== ENCOUNTER 2022-04-19 13:24 | Outpatient (CLI) | payer BC, MEDICARE | END 2022-04-19 13:25 | disposition home or self-care (01) | LOC: CSHULT 13:24 | PROVIDERS: ATTEND Family Medicine | DX: R60.0 Localized edema (principal); I82.4Y2 Acute embolism and thrombosis of unspecified deep veins of left proximal lower extremity ==

== ENCOUNTER 2022-08-02 12:13 | Outpatient (CLI) | payer MEDICARE | END 2022-08-02 12:14 | disposition home or self-care (01) | LOC: CSHULT 12:13 | PROVIDERS: ATTEND Family Medicine | DX: I82.412 Acute embolism and thrombosis of left femoral vein (principal); R93.89 Abnormal findings on diagnostic imaging of other specified body structures; Z09 Encounter for follow-up examination after completed treatment for conditions other than malignant neoplasm; Z86.718 Personal history of other venous thrombosis and embolism; I82.402 Acute embolism and thrombosis of unspecified deep veins of left lower extremity ==

== ENCOUNTER 2023-08-31 20:16 | Observation (INO) | payer MEDICARE ==
[2023-08-31] MEDS ORDERED: HYDROmorphone 0.5 MG/0.5 ML SYRINGE ONE (20:49)
[2023-08-31] MEDS ORDERED: Promethazine HCl 25 MG in Sodium Chloride 0.9% 50 ML IVPB SCH (21:00)
[2023-08-31] MEDS ORDERED: Famotidine/PF 20 mg/2ml Vial SLOW IVP SCH (21:15)
[2023-08-31 21:39] LABS: Bilirubin Neg (Negative); Blood, Urine 10 (Negative); Clarity Clear (Clear); Glucose, Urine (Dipstick) Normal (Negative); Ketone, Urine 150 mg/dL (Negative); Leukocyte Negative (Negative); Nitrite Negative (Negative); Protein, Urine (Dipstick) 30 mg/dl (Neg-Trace); Specific Gravity, Urine 1.025 (1.005-1.030); Urobilinogen Normal mg/dL (Less than 2)
[2023-08-31 21:49] LABS: Bacteria/HPF Rare-Few HPF (None Seen); CAUTI Indications for Culture Pelvic or flank pain; RBC/HPF 0-3 HPF (0-3); Squamous Epithelial 0-3 HPF (0-3); WBC/HPF 0-3 HPF (0-3)
[2023-08-31 21:51] LABS: Urine Culture Reflex No No
[2023-08-31 21:56] LABS: #Eosinphils 0.1 10x3/uL (0.0-0.5); #Monocytes 0.6 10x3/uL (0.0-1.1); #Neutrophils 6.3 10x3/uL (1.5-8.4); %Basophils 0.2 % (0.0-2.0); %Eosinophils 0.6 % (0.0-6.0); %Lymphocytes 19.9 % (18.0-47.0); %Monocytes 7.3 % (0.0-10.0); %Neutrophils 71.7 % (40.0-75.0); Hematocrit 34.9 % (34.9-44.5); Hemoglobin 11.1 g/dL (12.0-15.5); Mean Corpuscular HGB CONC 31.8 g/dL (32.0-36.0); Mean Corpuscular Volume 84.9 fl (81.6-98.3); Mean Platelet Volume 10.4 fl (7.4-10.4); Platelet Count 334 10x3/uL (150-450); RBC Distribution Width 14.6 % (11.5-14.5); Red Blood Cell (RBC) Count 4.11 10x6/uL (3.90-5.03); White Blood Cell (WBC) Count 8.7 10x3/uL (3.5-10.5)
[2023-08-31 22:20] LABS: ALT (SGPT) 56 U/L (8-55); AST (SGOT) 45 U/L (5-34); Albumin 3.6 g/dL (3.4-4.8); Alkaline Phosphatase 961 U/L (40-110); Anion Gap 22 mmol/L (10-20); BUN (Urea Nitrogen) 12 mg/dL (9.8-20.1); Bilirubin, Total 0.7 mg/dL (0.2-1.2); Calc. Creatinine Clearance 0 mL/min (70-130); Calcium 9.2 mg/dL (7.8-10.44); Carbon Dioxide 21 mmol/L (23-31); Chloride 99 mmol/L (98-107); Estimated GFR 94; Globulin 3.6 g/dL (2.4-3.5); Glucose 159 mg/dL (80-115); Lipase 15 U/L (8-78); Potassium 3.6 mmol/L (3.5-5.1); Protein, Total 7.2 g/dL (5.8-8.1); Sodium 138 mmol/L (136-145)
[2023-08-31] MEDS ORDERED: Glucagon 1 MG/ML KIT IM PRN (23:24)
[2023-08-31] MEDS ORDERED: HumaLOG 300 UNITS/3 ML VIAL SC PRN ×2 (23:24)
[2023-08-31] MEDS ORDERED: Dextrose 5% in Water 1,000 ML IV PRN (23:24)
[2023-08-31] MEDS ORDERED: Dextrose 50% Abboject 50 ML SYRINGE SLOW IVP PRN (23:24)
[2023-08-31] MEDS ORDERED: Morphine 4 MG/ML VIAL SLOW IVP PRN (23:26)
[2023-09-01 00:15] VITALS: BMI 25.5
[2023-09-01] MEDS ORDERED: Sodium Chloride 0.9% 1,000 ML IV SCH (00:30)
[2023-09-01] MEDS: traMADol HCl 50 MG TAB PO PRN ×3 (00:57→15:22)
[2023-09-01 04:52] LABS: #Eosinphils 0.1 10x3/uL (0.0-0.5); #Monocytes 0.6 10x3/uL (0.0-1.1); #Neutrophils 4.1 10x3/uL (1.5-8.4); %Basophils 0.3 % (0.0-2.0); %Eosinophils 1.4 % (0.0-6.0); %Lymphocytes 24.1 % (18.0-47.0); %Monocytes 8.7 % (0.0-10.0); %Neutrophils 65.3 % (40.0-75.0); Hematocrit 32.5 % (34.9-44.5); Hemoglobin 10.2 g/dL (12.0-15.5); Mean Corpuscular HGB CONC 31.4 g/dL (32.0-36.0); Mean Corpuscular Hemoglobin 26.8 pg (27.0-33.0); Mean Corpuscular Volume 85.5 fl (81.6-98.3); Mean Platelet Volume 10.2 fl (7.4-10.4); Platelet Count 261 10x3/uL (150-450); RBC Distribution Width 14.5 % (11.5-14.5); White Blood Cell (WBC) Count 6.3 10x3/uL (3.5-10.5)
[2023-09-01 05:03] LABS: ALT (SGPT) 48 U/L (8-55); AST (SGOT) 43 U/L (5-34); Albumin 3.3 g/dL (3.4-4.8); Alkaline Phosphatase 850 U/L (40-110); Anion Gap 15 mmol/L (10-20); BUN (Urea Nitrogen) 10 mg/dL (9.8-20.1); Bilirubin, Total 0.7 mg/dL (0.2-1.2); Calc. Creatinine Clearance 91 mL/min (70-130); Calcium 8.6 mg/dL (7.8-10.44); Carbon Dioxide 22 mmol/L (23-31); Chloride 103 mmol/L (98-107); Estimated GFR 95; Glucose 116 mg/dL (80-115); Potassium 3.5 mmol/L (3.5-5.1); Protein, Total 6.3 g/dL (5.8-8.1); Sodium 136 mmol/L (136-145)
[2023-09-01] MEDS ORDERED: Dicyclomine 10 MG CAP PO PRN (05:16)
[2023-09-01] MEDS ORDERED: Levothyroxine Sodium 112 MCG TAB PO SCH (06:00)
[2023-09-01] MEDS ORDERED: Levothyroxine Sodium 25 MCG TAB PO SCH (06:00)
[2023-09-01] MEDS ORDERED: Gabapentin 300 MG CAP PO SCH (09:00)
[2023-09-01] MEDS: Ondansetron PF 4 MG/2 ML Vial IVP PRN ×2 (09:22→15:22)
[2023-09-01 12:57] VITALS: BP 115/65; TEMP 98.8
[2023-09-01] MEDS ORDERED: Verapamil 180 MG ER.TAB PO SCH (21:00)
[2023-09-01] MEDS ORDERED: Atorvastatin Calcium 10 MG TAB PO SCH (21:00)
== END 2023-09-01 16:18 | disposition home or self-care (01) ==
LOC: CSHERS 20:16 → CSHTELE 09-01 00:11
PROVIDERS: ADMIT Internal Medicine; ATTEND Nurse Practitioner Family
DX: R11.2 Nausea with vomiting, unspecified (principal); R10.31 Right lower quadrant pain; R10.32 Left lower quadrant pain; E11.9 Type 2 diabetes mellitus without complications; C25.9 Malignant neoplasm of pancreas, unspecified; E78.5 Hyperlipidemia, unspecified; E03.9 Hypothyroidism, unspecified; M19.90 Unspecified osteoarthritis, unspecified site; R74.8 Abnormal levels of other serum enzymes; Z79.890 Hormone replacement therapy; Z79.4 Long term (current) use of insulin; Z79.899 Other long term (current) drug therapy; Z96.653 Presence of artificial knee joint, bilateral; Z87.891 Personal history of nicotine dependence
CPT/HCPCS: 36416; 80053; 81001; 82010; 83690; 85025; 93005; 94760; 94762; 96365; 96372; 96375; 96376; G0378; J1170; J1642; J2270; J2405; J2550; J7050; S0028

== ENCOUNTER 2023-09-02 20:59 | Emergency (ER) | payer MEDICARE ==
[~2023-09-02 20:59] MED LIST: Iopamidol 300 61% 100 ML VIAL FS ONE
[2023-09-02] MEDS ORDERED: Promethazine HCl 25 MG in Sodium Chloride 0.9% 50 ML IVPB SCH (21:45)
[2023-09-02 22:22] LABS: #Monocytes 0.7 10x3/uL (0.0-1.1); #Neutrophils 5.6 10x3/uL (1.5-8.4); %Basophils 0.4 % (0.0-2.0); %Eosinophils 0.2 % (0.0-6.0); %Lymphocytes 25.2 % (18.0-47.0); %Monocytes 8.5 % (0.0-10.0); %Neutrophils 65.5 % (40.0-75.0); Hematocrit 37.6 % (34.9-44.5); Hemoglobin 12.2 g/dL (12.0-15.5); Mean Corpuscular HGB CONC 32.4 g/dL (32.0-36.0); Mean Corpuscular Hemoglobin 27.2 pg (27.0-33.0); Mean Corpuscular Volume 83.7 fl (81.6-98.3); Platelet Count 436 10x3/uL (150-450); RBC Distribution Width 14.4 % (11.5-14.5); Red Blood Cell (RBC) Count 4.49 10x6/uL (3.90-5.03); White Blood Cell (WBC) Count 8.6 10x3/uL (3.5-10.5)
[2023-09-02] MEDS ORDERED: Morphine 4 MG/ML VIAL ONE (22:31)
[2023-09-02 22:43] LABS: ALT (SGPT) 44 U/L (8-55); AST (SGOT) 31 U/L (5-34); Alkaline Phosphatase 870 U/L (40-110); Anion Gap 24 mmol/L (10-20); BUN (Urea Nitrogen) 12 mg/dL (9.8-20.1); Bilirubin, Total 0.6 mg/dL (0.2-1.2); CK (CPK) 20 U/L (29-168); Calc. Creatinine Clearance 0 mL/min (70-130); Calcium 9.7 mg/dL (7.8-10.44); Carbon Dioxide 26 mmol/L (23-31); Chloride 92 mmol/L (98-107); Estimated GFR 77; Globulin 3.9 g/dL (2.4-3.5); Glucose 157 mg/dL (80-115); Lipase 9 U/L (8-78); Protein, Total 7.9 g/dL (5.8-8.1); Sodium 139 mmol/L (136-145)
[2023-09-02 23:49] LABS: Bilirubin 1+ (Negative); Blood, Urine 25 (Negative); Clarity Slightly Cloudy (Clear); Glucose, Urine (Dipstick) 50 mg/dL (Negative); Ketone, Urine 150 mg/dL (Negative); Leukocyte 25 (Negative); Nitrite Negative (Negative); Protein, Urine (Dipstick) 100 mg/dl (Neg-Trace)
[2023-09-03 00:04] LABS: Bacteria/HPF 1+ HPF (None Seen); CAUTI Indications for Culture Pelvic or flank pain; RBC/HPF 0-3 HPF (0-3)
[2023-09-03 00:05] LABS: Mucous/LPF 3+ LPF (<2+)
[2023-09-03 00:06] LABS: Urine Culture Reflex Yes Yes
[2023-09-03] MEDS ORDERED: cefTRIAXone (ROCEPHIN) 1 GM VIAL ONE (00:51)
[2023-09-03] MEDS ORDERED: Morphine 4 MG/ML VIAL ONE (02:43)
[2023-09-03] MEDS ORDERED: Promethazine HCl 25 MG in Sodium Chloride 0.9% 50 ML IVPB SCH (03:00)
== END 2023-09-03 03:19 | disposition short-term general hospital (02) ==
LOC: CSHERS 20:59
DX: C25.9 Malignant neoplasm of pancreas, unspecified (principal); K90.49 Malabsorption due to intolerance, not elsewhere classified; N39.0 Urinary tract infection, site not specified; E87.6 Hypokalemia; E03.9 Hypothyroidism, unspecified; E78.5 Hyperlipidemia, unspecified; E11.9 Type 2 diabetes mellitus without complications; Z87.891 Personal history of nicotine dependence
CPT/HCPCS: 74177; 80053; 81001; 82550; 83690; 85025; 87086; 96365; 96375; 96376; J0696; J2270; J2550; Q9967